=== PATIENT | male | born 1930 | race Caucasian/White ===

== ENCOUNTER 2020-06-07 09:45 | Inpatient (IN) | payer MEDICARE, BC, OTHER ==
[2020-06-07] MEDS ORDERED: Morphine 4 MG/ML VIAL ONE (11:05)
[2020-06-07 11:33] LABS: #Lymphocytes 1.2 thou/uL (1.20-3.40); #Neutrophils 10.1 thou/uL (1.40-6.50); %Basophils 0.1 % (0.0-1.0); %Monocytes 8.3 % (0.0-10.0); %Neutrophils 81.7 % (42.0-75.0); Hemoglobin 15.2 g/dL (14.0-18.0); Mean Corpuscular HGB CONC 32.4 g/dL (32.0-36.0); Mean Corpuscular Hemoglobin 29.9 pg (27.0-31.0); Mean Corpuscular Volume 92.6 fL (78.0-98.0); Mean Platelet Volume 7.2 fL (7.4-10.4); Platelet Count 160 thou/uL (130-400); RBC Distribution Width 11.6 % (11.5-14.5); Red Blood Cell (RBC) Count 5.08 mill/uL (4.70-6.10); White Blood Cell (WBC) Count 12.3 thou/uL (4.8-10.8)
[2020-06-07 11:45] LABS: ALT (SGPT) 14 U/L (8-55); AST (SGOT) 27 U/L (5-34); Albumin 3.9 g/dL (3.4-4.8); Alkaline Phosphatase 84 U/L (40-110); Anion Gap 17 mmol/L (10-20); BUN (Urea Nitrogen) 15 mg/dL (8.4-25.7); Bilirubin, Total 0.8 mg/dL (0.2-1.2); Calc. Creatinine Clearance 0 mL/min (70-130); Calcium 8.9 mg/dL (7.8-10.44); Carbon Dioxide 19 mmol/L (23-31); Chloride 101 mmol/L (98-107); Estimated GFR-MDRD 80; Globulin 4.4 g/dL (2.4-3.5); Glucose 126 mg/dL (83-110); Lipase 13 U/L (8-78); Potassium 5.1 mmol/L (3.5-5.1); Protein, Total 8.3 g/dL (5.8-8.1); Sodium 132 mmol/L (136-145)
[2020-06-07 13:56] VITALS: BMI 24.8
[2020-06-07] MEDS ORDERED: Bisacodyl 10 MG SUPP PR PRN (15:27)
[2020-06-07] MEDS ORDERED: Senokot S 8.6-50 MG TAB PO PRN (15:27)
[2020-06-07] MEDS ORDERED: diphenhydrAMINE 50 MG CAP PO PRN (15:27)
[2020-06-07] MEDS ORDERED: Guaifenesin DM 100-10/5 ML UDCUP PO PRN (15:27)
[2020-06-07] MEDS ORDERED: Ondansetron PF 4 MG/2 ML Vial IVP PRN (15:27)
[2020-06-07] MEDS ORDERED: predniSONE 50 MG TAB PO SCH (16:00)
--- NOTE | 2020-06-07 16:02 | HP ---
REASON FOR ADMISSION: Possible mesenteric ischemia, periumbilical pain. HISTORY OF PRESENTING ILLNESS: The patient gives history of waking up from sleep yesterday night with periumbilical area pain. This was 10/10 in intensity. It is still around 3/10 even after pain medication at present. No complaints of bloody stools. Had a normal bowel movement yesterday morning. He feels like slightly nauseous, but no vomiting as such. No diarrhea. No prior history of similar pain in the past. He sees Dr. Mancuso for Cardiology. He has not had any stenting done for his coronaries in the past. The patient states he has had normal colonoscopy before. No complaints of chest pain, palpitation, PND, or orthopnea. Has chronic cough from a long time. PAST MEDICAL AND SURGICAL HISTORY: History of atrial fibrillation, AICD. 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 Benign prostatic hypertrophy, dyslipidemia, history of nephrolithiasis, bilateral knee replacements, bilateral hip replacements, cataract surgery, and hernia repair. ALLERGIES: TO ASPIRIN, IODINE, NSAIDS, AND PENICILLIN. PERSONAL HISTORY: Does not abuse alcohol or drugs. Quit smoking in 1960s. Lives with his . Ambulates by himself. FAMILY HISTORY: Mother in her 80s from natural causes. Father in his 80s as well and had history of CVA. CODE STATUS: Full. 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 REVIEW OF SYSTEMS: CONSTITUTIONAL: Negative for weight loss or gain, ability to conduct usual activities. SKIN: Negative for rash, itching. EYES: Negative for double vision, pain. ENT/MOUTH: Negative for nose bleeding, neck stiffness, pain, tenderness. CARDIOVASCULAR: Negative for palpitations, dyspnea on exertion, orthopnea. RESPIRATORY: Negative for shortness of breath, wheezing, cough, hemoptysis, fever or night sweats. GASTROINTESTINAL: Negative for poor appetite, abdominal pain, heartburn, nausea, vomiting, constipation, or diarrhea. GENITOURINARY: Negative for urgency, frequency, dysuria, nocturia. MUSCULOSKELETAL: Negative for pain, swelling. NEUROLOGIC/PSYCHIATRIC: Negative for anxiety, depression. ALLERGY/IMMUNOLOGIC: Negative for skin rash, bleeding tendency. PHYSICAL EXAMINATION: GENERAL: The patient is an 89-year-old male, who is currently not in any acute distress. VITAL SIGNS: Blood pressure 106/86, pulse 66 per minute, respiratory rate 20 per minute, temperature 97.7 degrees Fahrenheit, and saturating 100% on room air. NECK: Supple. No elevated JVD. HEENT: Eyes; extraocular muscles intact. Pupils reacting to light. Oral cavity, mucous membranes are moist. No exudates or congestion. CARDIOVASCULAR SYSTEM: S1 and S2 heard. Regular rhythm. RESPIRATORY SYSTEM: Air entry 1+ bilateral. No rales or rhonchi. ABDOMEN: Soft. There is mild tenderness in the periumbilical area. No rigidity or guarding. EXTREMITIES: No peripheral edema or calf tenderness. VASCULAR SYSTEM: Peripheral pulses 1+ bilateral. No ischemic ulcerations or gangrene. CENTRAL NERVOUS SYSTEM: No gross focal motor deficits noted. The patient is alert, awake, and oriented well. PSYCHIATRIC SYSTEM: The patient's mood is euthymic. No hallucinations or delusions. LABORATORY DATA: The patient has had CT of the abdomen and pelvis with and without contrast done at [place]. The official report is pending. Chest x-ray done by my review shows no acute infiltrate. White count of 12, H and H 15 and 47, platelet count 160 with 81% neutrophils. PT/INR within normal limits. PTT 40. Sodium 132, serum bicarb 19, BUN 15, creatinine 0.9, serum glucose 126. Liver enzymes within normal limits. Albumin is 3.9. CLINICAL IMPRESSION AND PLAN: The patient will be under observation on medical floor for suspected mesenteric ischemia with periumbilical pain. His official CAT scan results are pending at present. We will obtain CT angio of the abdomen. The patient has iodine allergy and will need premedication. He will be on prednisone and Benadryl for the same. We will continue all his home medications including Coreg, Proscar, Flomax, Keppra, lisinopril, and Crestor as before. He will be on Protonix 40 mg twice daily. A consult for Dr. Drew Martin has been placed from ER, and we will follow up on his opinion. Echo with 2D Doppler for LV function will be obtained. The patient states his heart is weak and sees Dr. Mancuso. He will be on clear liquid diet for now. We will gently hydrate him at 100 mL per hour normal saline. Job ID: [id number]
[2020-06-07] MEDS: Sodium Chloride 0.9% 1,000 ML IV SCH (16:25)
[2020-06-07] MEDS ORDERED: Fentanyl 100 MCG/2 ML VIAL SLOW IVP PRN (19:35)
[2020-06-07] MEDS: predniSONE 50 MG TAB PO SCH (20:13)
[2020-06-07] MEDS: levETIRAcetam 500 MG TAB PO SCH (20:13)
[2020-06-07] MEDS: Rosuvastatin 20 MG TAB PO SCH (20:13)
[2020-06-07] MEDS: Carvedilol 3.125 MG TAB PO SCH (20:14)
[2020-06-07] MEDS: Tamsulosin HCl 0.4 MG CAP PO SCH (20:14)
[2020-06-08] MEDS: predniSONE 50 MG TAB PO SCH ×2 (02:10→08:25)
[2020-06-08] MEDS: Sodium Chloride 0.9% 1,000 ML IV SCH ×3 (02:10→20:17)
[2020-06-08 05:27] LABS: #Lymphocytes 1.1 thou/uL (1.20-3.40); #Monocytes 0.8 thou/uL (0.11-0.59); #Neutrophils 13.5 thou/uL (1.40-6.50); %Basophils 0.2 % (0.0-1.0); %Eosinophils 0.1 % (0.0-10.0); %Lymphocytes 6.9 % (21.0-51.0); %Monocytes 4.9 % (0.0-10.0); %Neutrophils 87.9 % (42.0-75.0); Hemoglobin 13.8 g/dL (14.0-18.0); Mean Corpuscular Hemoglobin 30.6 pg (27.0-31.0); Mean Corpuscular Volume 92.7 fL (78.0-98.0); Mean Platelet Volume 6.9 fL (7.4-10.4); Platelet Count 186 thou/uL (130-400); RBC Distribution Width 11.6 % (11.5-14.5); Red Blood Cell (RBC) Count 4.52 mill/uL (4.70-6.10); White Blood Cell (WBC) Count 15.4 thou/uL (4.8-10.8)
[2020-06-08 05:48] LABS: Anion Gap 11 mmol/L (10-20); BUN (Urea Nitrogen) 12 mg/dL (8.4-25.7); Calc. Creatinine Clearance 76 mL/min (70-130); Calcium 8.4 mg/dL (7.8-10.44); Carbon Dioxide 20 mmol/L (23-31); Chloride 106 mmol/L (98-107); Estimated GFR-MDRD Greater than 90; Glucose 164 mg/dL (83-110); Potassium 3.9 mmol/L (3.5-5.1); Sodium 133 mmol/L (136-145)
[2020-06-08] MEDS ORDERED: diphenhydrAMINE 25 MG CAP PO SCH (08:00)
[2020-06-08] MEDS: Finasteride 5 MG TAB PO SCH (08:25)
[2020-06-08] MEDS: Carvedilol 3.125 MG TAB PO SCH ×2 (08:25→20:10)
[2020-06-08] MEDS: levETIRAcetam 500 MG TAB PO SCH ×2 (08:25→20:10)
[2020-06-08] MEDS: Lisinopril 10 MG TAB PO SCH (08:26)
--- NOTE | 2020-06-08 09:28 | CT ---
EXAM: CTA Angio Abd Pelvis W WO Con PROVIDED CLINICAL HISTORY: Mesenteric ischemia COMPARISON: 06/07/2020 CT abdomen and pelvis FINDINGS: The visualized lung bases are free of significant opacity. The solid abdominal organs are suboptimally evaluated in the arterial phase of contrast. Simple appea ring right renal cyst and parapelvic left renal cysts are seen. Gallstones are noted. Scattered loops of ectatic fluid-filled small bowel without evidence for padmini obstruction. No free f luid or free air apparent. There is the development of fat stranding about the neck of the gallbladder, with gallstones again se en. The abdominal aorta is nonaneurysmal. 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 No significant superior mesenteric or inferior mesenteric artery stenosis. Moderate proximal left renal artery calcified stenosis and mild right proximal renal artery calcified stenosis. Evaluation of the pelvis is limited due to beam hardening artifact from bilateral hip arthroplasties. Changes of iliopsoas bursitis with intramuscular extension on the left are redemonstrated. The osseous structures demonstrate no concerning lytic or blastic lesions. IMPRESSION: 1. Cholelithiasis with development of fat stranding about the neck of the gallbladder. Correlate with concerns for acute cholecystitis. 2. Scattered loops of ectatic fluid-filled small bowel without evidence for obstruction. This could r eflect enteritis or ileus.
[2020-06-08] MEDS ORDERED: Iopamidol-370 76% 500 ML 1 ML ONE (11:29)
--- NOTE | 2020-06-08 12:28 | PDOC.HOSPP ---
- Subjective Encounter Date: 06/08/20 Encounter Time: 11:00 Subjective: no abd pain this am, feels good no nausea or vomiting - Objective Vital Signs & Weight: Vital Signs (12 hours) Temp Pulse Resp BP Pulse Ox 06/08/20 07:40 97.8 F 75 20 126/76 95 06/08/20 04:50 97.9 F 78 18 107/68 93 L Weight Weight 178 lb I&O: 06/07/20 06/08/20 06/09/20 06:59 06:59 06:59 Intake Total 2000 Output Total 700 Balance 1300 Result Diagrams: 06/08/20 05:00 06/08/20 05:00 Hospitalist ROS - Medication Medications: Active Medications Generic Name Dose Route Start Last Admin Trade Name Freq PRN Reason Stop Dose Admin Carvedilol 3.125 mg 06/07/20 21:00 06/08/20 08:25 Carvedilol 3.125 Mg Tab PO 3.125 mg BID MICHAEL Administration Finasteride 5 mg 06/08/20 09:00 06/08/20 08:25 Finasteride 5 Mg Tab PO 5 mg DAILY MICHAEL Administration Sodium Chloride 1,000 mls @ 100 mls/hr 06/07/20 15:30 06/08/20 11:23 Normal Saline 0.9% IV 1,000 mls .Q10H MICHAEL Administration Levetiracetam 250 mg 06/07/20 21:00 06/08/20 08:25 Levetiracetam 500 Mg Tab PO 250 mg BID MICHAEL Administration Lisinopril 5 mg 06/08/20 09:00 06/08/20 08:26 Lisinopril 10 Mg Tab PO 5 mg DAILY MICHAEL Administration Pantoprazole Sodium 40 mg 06/07/20 21:00 06/08/20 08:26 Pantoprazole 40 Mg Tab PO 40 mg BID MICHAEL Administration Rosuvastatin Calcium 20 mg 06/07/20 21:00 06/07/20 20:13 Rosuvastatin 20 Mg Tab PO 20 mg HS MICHAEL Administration Tamsulosin HCl 0.4 mg 06/07/20 21:00 06/07/20 20:14 Tamsulosin Hcl 0.4 Mg Cap PO 0.4 mg QPM MICHAEL Administration - Exam General Appearance: awake alert Eye: PERRL, anicteric sclera ENT: no oropharyngeal lesions, moist mucosa Neck: supple, no JVD Heart: RRR, no murmur Respiratory: no wheezes, no rales Gastrointestinal: soft, non-tender, non-distended, normal bowel sounds Extremities: no cyanosis, no edema Neurological: cranial nerve grossly intact, no focal deficits Hosp A/P (1) Abdominal pain Code(s): R10.9 - UNSPECIFIED ABDOMINAL PAIN Status: Acute Qualifiers: Abdominal location: periumbilical Qualified Code(s): R10.33 - Periumbilical pain (2) Cholelithiasis Code(s): K80.20 - CALCULUS OF GALLBLADDER W/O CHOLECYSTITIS W/O OBSTRUCTION Status: Suspected Qualifiers: Cholelithiasis location: gallbladder Cholecystitis presence: with cholecystitis (3) Afib Code(s): I48.91 - UNSPECIFIED ATRIAL FIBRILLATION Status: Chronic Qualifiers: Atrial fibrillation type: paroxysmal Qualified Code(s): I48.0 - Paroxysmal atrial fibrillation (4) BPH (benign prostatic hyperplasia) Code(s): N40.0 - BENIGN PROSTATIC HYPERPLASIA WITHOUT LOWER URINRY TRACT SYMP Status: Chronic Qualifiers: Lower urinary tract symptom presence: symptoms absent Qualified Code(s): N40.0 - Benign prostatic hyperplasia without lower urinary tract symptoms (5) CAD (coronary artery disease) Code(s): I25.10 - ATHSCL HEART DISEASE OF [place] CORONARY ARTERY W/O ANG PCTRS Status: Chronic Qualifiers: Coronary Disease-Associated Artery/Lesion type: [place] artery [place] vs. tr ansplanted heart: [place] heart Associated angina: without angina Qualified Code(s): I25.10 - Atherosclerotic heart disease of [place] coronary artery without angina pectoris (6) Dyslipidemia Code(s): E78.5 - HYPERLIPIDEMIA, UNSPECIFIED Status: Chronic (7) HTN (hypertension) Code(s): I10 - ESSENTIAL (PRIMARY) HYPERTENSION Status: Chronic Qualifiers: - Plan CT angio abd results noted, no high grade stenosis of intra-abd arteries has edema around gal bladder neck, will get usg, surg consult hemostable off eliquis from yesterday (not sure if he took his morning dose yesterday) prior cath in 2016 showed 60% lad with no intervention, last echo showed normal ef per If no procedures are planned he will be dc'd home today, if not will switch him to inpatient status
--- NOTE | 2020-06-08 14:41 | ULT ---
EXAM: US Gallbladder RUQ CLINICAL HISTORY: Eval for cholecystitis.. COMPARISON: 04/20/2024 FINDINGS: Pancreas: Obscured by bowel gas Liver:Suboptimal evaluation left hepatic lobe. In the right hepatic lobe is a 1.2 x 1.1 x 1.3 cm hypo echoic focus with through transmission suggesting a slightly complex cyst. Right hepatic lobe: 14.8 cm Gallbladder: Gallbladder wall is thickened measuring 0.32 cm. There is pericholecystic fluid. Extensi ve gallstones with shadowing. Kearns's sign:Negative Portal Vein: Patent. Appropriate directional flow Bile ducts: Suboptimal evaluation the common bile duct Right kidney: There is right renal cortical thinning. No obvious cortical masses. No hydronephrosis. Right kidney measures 5.0 x 11.7 x 4.7 cm. There is a 2.6 x 3.0 x 2.7 cm right renal cortical cyst. cm in length. IMPRESSION: 1. Sonographic evidence of cholelithiasis with findings are equivocal for cholecystitis. HIDA scan is recommended.
[2020-06-08] MEDS: Tamsulosin HCl 0.4 MG CAP PO SCH (20:10)
[2020-06-08] MEDS: Rosuvastatin 20 MG TAB PO SCH (20:10)
--- NOTE | 2020-06-08 20:51 | CON ---
DATE OF CONSULTATION: 06/08/2020 CHIEF COMPLAINT: Abdominal pain. HISTORY OF PRESENT ILLNESS: This is an 89-year-old male who was transferred over from [place] with a history of pain in the periumbilical region radiating up towards his right side. Pain was sharp, severe, occurred after a meal. The pain has now resolved. It was not associated with nausea or vomiting. No sick contacts. No diarrhea or constipation. He has never had this pain before. He had known gallstones in the past from previous CAT scans. His CT did not show mesenteric ischemia. It did however show gallstones and questionable inflammatory change around the gallbladder. He has now had an ultrasound, which showed some pericholecystic fluid concerning for cholecystitis. His pain has completely resolved and he is hungry. No nausea. PAST MEDICAL HISTORY: Atrial fibrillation, CVA, BPH, dyslipidemia, nephrolithiasis. PAST SURGICAL HISTORY: Knee replacement, hip replacement, cataract, hernia repair, AICD. ALLERGIES: ASPIRIN, IODINE, NSAIDS, PENICILLIN. SOCIAL HISTORY: No smoking or alcohol or other drugs. REVIEW OF SYSTEMS: 10-system review of systems is otherwise negative unless described above. PHYSICAL EXAMINATION: VITAL SIGNS: He is afebrile. Vital signs are stable. CHEST: Clear. HEART: Regular rate. ABDOMEN: Soft, minimally tender in the right upper quadrant without guarding or rebound. No abdominal hernias. EXTREMITIES: No ischemia or edema to extremities. DIAGNOSTIC STUDIES: CT scan and ultrasound as above. LABORATORY DATA: White blood cell count is 15, hemoglobin 13. Liver function tests normal on admission. Creatinine normal 0.77. ASSESSMENT AND PLAN: Symptomatic cholelithiasis, questionable cholecystitis, but symptoms have now resolved. The patient would rather be discharged home. I recommend COVID test prior to discharge. I recommended he try a low-fat diet tonight before he is discharged because his symptoms may return. He has been n.p.o. all day. Even if he goes home, he can call my office early in the week if the symptoms recur. Otherwise, would not be able to do his gallbladder until Thursday secondary to lack of COVID testing thus far. Job ID: [id number]
[2020-06-09] MEDS: Sodium Chloride 0.9% 1,000 ML IV SCH ×2 (00:12→11:48)
--- NOTE | 2020-06-09 08:07 | PRG ---
DATE OF SERVICE: 06/09/2020 SUBJECTIVE: Mr. Grigsby had a good night. He tolerated solid food. He denies nausea. OBJECTIVE: VITAL SIGNS: On exam, he is afebrile. Vital signs are stable. ABDOMEN: He is tender in the right upper quadrant. ASSESSMENT: Symptomatic cholelithiasis with ongoing pain, although he did tolerate diet. PLAN: I think the safest thing is to remove his gallbladder tomorrow. He is more amenable to consenting to that today. Plan would be diet as tolerated today, n.p.o. after midnight tonight, laparoscopic cholecystectomy tomorrow. Job ID: [id number]
[2020-06-09 08:21] LABS: #Lymphocytes 1.5 thou/uL (1.20-3.40); #Monocytes 1.4 thou/uL (0.11-0.59); #Neutrophils 12.9 thou/uL (1.40-6.50); %Basophils 0.3 % (0.0-1.0); %Eosinophils 0.1 % (0.0-10.0); %Lymphocytes 9.5 % (21.0-51.0); %Monocytes 8.6 % (0.0-10.0); %Neutrophils 81.6 % (42.0-75.0); Mean Corpuscular HGB CONC 33.1 g/dL (32.0-36.0); Mean Corpuscular Hemoglobin 30.5 pg (27.0-31.0); Mean Platelet Volume 6.9 fL (7.4-10.4); Platelet Count 183 thou/uL (130-400); RBC Distribution Width 11.7 % (11.5-14.5); Red Blood Cell (RBC) Count 4.26 mill/uL (4.70-6.10); White Blood Cell (WBC) Count 15.8 thou/uL (4.8-10.8)
[2020-06-09] MEDS: levETIRAcetam 500 MG TAB PO SCH ×2 (08:46→20:03)
[2020-06-09] MEDS: Finasteride 5 MG TAB PO SCH (08:47)
[2020-06-09] MEDS: Carvedilol 3.125 MG TAB PO SCH ×2 (08:47→20:03)
[2020-06-09] MEDS: Lisinopril 10 MG TAB PO SCH (08:47)
[2020-06-09 08:50] LABS: Anion Gap 9 mmol/L (10-20); BUN (Urea Nitrogen) 16 mg/dL (8.4-25.7); Calc. Creatinine Clearance 73 mL/min (70-130); Carbon Dioxide 23 mmol/L (23-31); Chloride 110 mmol/L (98-107); Estimated GFR-MDRD Greater than 90; Glucose 105 mg/dL (83-110); Potassium 4.2 mmol/L (3.5-5.1); Sodium 138 mmol/L (136-145)
[2020-06-09 14:57] LABS: SARS-CoV-2 MS2 Positive; SARS-CoV-2 N Gene Negative; SARS-CoV-2 S Gene Negative; SARS-CoV-2 by NAA Not Detected (NotDetected); SARS-CoV-2 orf1ab Negative
--- NOTE | 2020-06-09 15:12 | PDOC.HOSPP ---
- Subjective Encounter Date: 06/09/20 Encounter Time: 15:10 Subjective: Mr. Grigsby was seen today in follow-up of acute cholecystitis. He does not have any complaints today. He denies chest pain or shortness of breath. He denies symptoms of decompensated heart failure such as dyspnea at rest or on exertion. He denies PND or orthopnea. He says he can walk a flight of stairs with a cane. - Objective Vital Signs & Weight: Vital Signs (12 hours) Temp Pulse Resp BP Pulse Ox 06/09/20 11:21 97.7 F 83 18 113/72 93 L 06/09/20 06:56 97.8 F 80 18 120/73 95 06/09/20 04:00 97.9 F 79 18 126/70 92 L Weight Weight 178 lb I&O: 06/08/20 06/09/20 06/10/20 06:59 06:59 06:59 Intake Total 2000 2900 Output Total 700 400 Balance 1300 2500 Result Diagrams: 06/09/20 08:11 06/09/20 08:11 Hospitalist ROS - Medication Medications: Active Medications Generic Name Dose Route Start Last Admin Trade Name Freq PRN Reason Stop Dose Admin Carvedilol 3.125 mg 06/07/20 21:00 06/09/20 08:47 Carvedilol 3.125 Mg Tab PO 3.125 mg BID MICHAEL Administration Finasteride 5 mg 06/08/20 09:00 06/09/20 08:47 Finasteride 5 Mg Tab PO 5 mg DAILY MICHAEL Administration Sodium Chloride 1,000 mls @ 100 mls/hr 06/07/20 15:30 06/09/20 11:48 Normal Saline 0.9% IV 1,000 mls .Q10H MICHAEL Administration Levetiracetam 250 mg 06/07/20 21:00 06/09/20 08:46 Levetiracetam 500 Mg Tab PO 250 mg BID MICHAEL Administration Lisinopril 5 mg 06/08/20 09:00 06/09/20 08:47 Lisinopril 10 Mg Tab PO 5 mg DAILY MICHAEL Administration Pantoprazole Sodium 40 mg 06/07/20 21:00 06/09/20 08:47 Pantoprazole 40 Mg Tab PO 40 mg BID MICHAEL Administration Rosuvastatin Calcium 20 mg 06/07/20 21:00 06/08/20 20:10 Rosuvastatin 20 Mg Tab PO 20 mg HS MICHAEL Administration Senna/Docusate Sodium 2 tab 06/07/20 15:27 06/08/20 20:10 Senokot S 8.6-50 Mg Tab PO 2 tab BID PRN Administration Constipation Tamsulosin HCl 0.4 mg 06/07/20 21:00 06/08/20 20:10 Tamsulosin Hcl 0.4 Mg Cap PO 0.4 mg QPM MICHAEL Administration - Exam Eye: PERRL, anicteric sclera Heart: RRR, no murmur, no gallops, no rubs, normal peripheral pulses Respiratory: CTAB, no wheezes, no rales, no ronchi, normal chest expansion Gastrointestinal: soft, tender to palpation (+ RUQ tenderness, no rebound or guarding) Extremities: no cyanosis, no edema Hosp A/P (1) Acute cholecystitis Code(s): K81.0 - ACUTE CHOLECYSTITIS Status: Acute (2) CAD (coronary artery disease) Code(s): I25.10 - ATHSCL HEART DISEASE OF [place] CORONARY ARTERY W/O ANG PCTRS Status: Chronic Qualifiers: Coronary Disease-Associated Artery/Lesion type: [place] artery [place] vs. transplanted heart: [place] heart Associated angina: without angina Qualified Code(s): I25.10 - Atherosclerotic heart disease of [place] coronary artery without angina pectoris (3) Dyslipidemia Code(s): E78.5 - HYPERLIPIDEMIA, UNSPECIFIED Status: Chronic (4) HTN (hypertension) Code(s): I10 - ESSENTIAL (PRIMARY) HYPERTENSION Status: Chronic Qualifiers: - Plan * Acute Cholecystitis- plan is for lap giuseppe tomorrow * HTN- blood pressure is stable * CAD- stable- Echo from 06/03 reviewed. EKG is a paced rhythm. His Candy Maker Helper is Dr. Mancuso * HTN- blood pressure is stable
[2020-06-09] MEDS: Rosuvastatin 20 MG TAB PO SCH (20:03)
[2020-06-09] MEDS: Tamsulosin HCl 0.4 MG CAP PO SCH (20:03)
[2020-06-10] MEDS: Sodium Chloride 0.9% 1,000 ML IV SCH ×3 (01:44→16:12)
[2020-06-10] MEDS: Finasteride 5 MG TAB PO SCH (09:00)
[2020-06-10] MEDS ORDERED: Lidocaine 1% PF 5 ML VIAL ONE (09:22)
[2020-06-10] MEDS ORDERED: Rocuronium Bromide 10 MG/ML (10ML VIAL) ONE (09:22)
[2020-06-10] MEDS ORDERED: PROPOFOL 200 MG/20 ML VIAL ONE (09:22)
[2020-06-10] MEDS: Carvedilol 3.125 MG TAB PO SCH ×2 (09:45→19:59)
[2020-06-10] MEDS: Lisinopril 10 MG TAB PO SCH (09:46)
[2020-06-10] MEDS: levETIRAcetam 500 MG TAB PO SCH ×2 (09:47→19:59)
[2020-06-10] MEDS ORDERED: cefOXitin Sodium/Dextrose 2 GM/50 ML BAG ONE (11:13)
[2020-06-10] MEDS ORDERED: Bupivacaine/Epinephrine 0.25% 30 ML VIAL ONE (11:23)
[2020-06-10] MEDS ORDERED: Fentanyl 100 MCG/2 ML VIAL ONE ×2 (11:26→13:17)
[2020-06-10] MEDS ORDERED: traMADol HCl 50 MG TAB PO PRN (12:42)
[2020-06-10] MEDS ORDERED: Morphine 2 MG/ML VIAL SLOW IVP PRN (12:42)
[2020-06-10] MEDS ORDERED: Morphine 4 MG/ML VIAL SLOW IVP PRN (12:42)
[2020-06-10] MEDS ORDERED: Ondansetron HCl/PF 4 MG/2 ML Vial IVP PRN (12:57)
[2020-06-10] MEDS ORDERED: Promethazine HCl 25 MG/ML VIAL SLOW IVP PRN (12:57)
[2020-06-10] MEDS ORDERED: Promethazine HCl 25 MG/ML VIAL IM PRN (12:57)
--- NOTE | 2020-06-10 17:42 | OP ---
DATE OF PROCEDURE: 06/10/2020 PREOPERATIVE DIAGNOSIS: Acute cholecystitis. POSTOPERATIVE DIAGNOSIS: Acute gangrenous cholecystitis. PROCEDURE PERFORMED: Laparoscopic cholecystectomy with placement of intraabdominal drain. ANESTHESIA: General. ESTIMATED BLOOD LOSS: 50 mL. COMPLICATIONS: None. FINDINGS: Acute gangrenous cholecystitis. DESCRIPTION OF PROCEDURE: The patient was taken to the operating room and laid supine on the operating room table. After general anesthetic was obtained, the abdomen was shaved, prepped, and draped in a sterile fashion. A straight incision was made above the umbilicus. Cautery was used to dissect down to and score the fascia. The abdominal cavity was entered bluntly using a Maylin clamp. Holding stitch of PDS was placed on each side of the fascia. Duke trocar was placed. High-flow pneumoperitoneum was obtained. An upper midline 5-mm port and 2 right upper quadrant 5-mm ports were placed under direct visualization. The gallbladder had to be decompressed. It was grabbed and pushed up over the liver. The peritoneum was opened anteriorly and posteriorly. There was significant inflammatory change around the base of the gallbladder. The cystic duct and cystic artery were dissected free from surrounding structures. The cystic artery was taken using 2 clips proximally and cauterized distally. The critical view of triangle was seen, showing only the cystic duct and cystic artery branching medial to lateral and no other branching structures. Cystic duct appeared very thin-walled and partially gangrenous. Three clips were placed proximally on it and was cut distally. For this reason, a postop drain would be placed. The gallbladder was dissected out of the gallbladder fossa using cautery, placed in EndoCatch bag and brought out through the Duke. Meticulous hemostasis was obtained in the liver bed. A 19 round drain brought out through a right upper quadrant incision and left in the liver bed, sutured to the skin using 2-0 silk suture. All port sites were infiltrated using local anesthetic. All ports were removed under camera visualization. Pneumoperitoneum was let down. PDS was used to close the fascial defect below the umbilicus. All incisions were irrigated and closed using 4-0 Monocryl and Dermabond. The patient was sent to Recovery in stable condition. All instrument counts, needle counts, and lap counts were correct. Job ID: [id number]
[2020-06-10] MEDS: metroNIDAZOLE 500 MG in Premix Bag 1 BAG IVPB SCH ×2 (17:55→23:17)
[2020-06-10] MEDS: Tamsulosin HCl 0.4 MG CAP PO SCH (19:59)
[2020-06-10] MEDS: Rosuvastatin 20 MG TAB PO SCH (19:59)
[2020-06-11] MEDS: metroNIDAZOLE 500 MG in Premix Bag 1 BAG IVPB SCH (05:05)
[2020-06-11] MEDS: Sodium Chloride 0.9% 1,000 ML IV SCH (05:06)
[2020-06-11 08:20] LABS: #Lymphocytes 1.5 thou/uL (1.20-3.40); #Monocytes 1.4 thou/uL (0.11-0.59); #Neutrophils 8.1 thou/uL (1.40-6.50); %Basophils 0.1 % (0.0-1.0); %Eosinophils 0.2 % (0.0-10.0); %Lymphocytes 13.8 % (21.0-51.0); %Monocytes 12.3 % (0.0-10.0); %Neutrophils 73.5 % (42.0-75.0); Hemoglobin 12.4 g/dL (14.0-18.0); Mean Corpuscular HGB CONC 32.3 g/dL (32.0-36.0); Mean Corpuscular Hemoglobin 30.2 pg (27.0-31.0); Mean Corpuscular Volume 93.5 fL (78.0-98.0); Mean Platelet Volume 6.6 fL (7.4-10.4); Platelet Count 183 thou/uL (130-400); RBC Distribution Width 11.6 % (11.5-14.5); Red Blood Cell (RBC) Count 4.11 mill/uL (4.70-6.10)
[2020-06-11 08:31] LABS: Anion Gap 12 mmol/L (10-20); BUN (Urea Nitrogen) 7 mg/dL (8.4-25.7); Calc. Creatinine Clearance 82 mL/min (70-130); Calcium 7.8 mg/dL (7.8-10.44); Carbon Dioxide 19 mmol/L (23-31); Chloride 107 mmol/L (98-107); Estimated GFR-MDRD Greater than 90; Glucose 109 mg/dL (83-110); Potassium 3.4 mmol/L (3.5-5.1); Sodium 135 mmol/L (136-145)
[2020-06-11] MEDS: levETIRAcetam 500 MG TAB PO SCH (09:07)
[2020-06-11] MEDS: Lisinopril 10 MG TAB PO SCH (09:08)
[2020-06-11] MEDS: Carvedilol 3.125 MG TAB PO SCH (09:08)
[2020-06-11] MEDS: Finasteride 5 MG TAB PO SCH (09:09)
--- NOTE | 2020-06-11 10:06 | PDOC.GSPN ---
Surgery Progress Note: Subj - Subjective Narrative: Doing well. Pain controlled Surgery Progress Note: Obj - Vital signs Vital signs: Vital Signs - Most Recent Temp Pulse Resp BP Pulse Ox 98.0 F 80 14 165/89 H 95 06/11/20 07:31 06/11/20 07:31 06/11/20 07:31 06/11/20 07:31 06/11/20 07:31 - Physical Exam General: no distress Abdomen: soft, appropriately tender Wound: healing well Surgery Progress Note: Results - Labs Result Diagrams: 06/11/20 07:56 06/11/20 07:56 Lab results: Laboratory Results - last 24 hr 06/11/20 06/11/20 07:56 07:56 WBC 11.0 H RBC 4.11 L Hgb 12.4 L Hct 38.4 L MCV 93.5 MCH 30.2 MCHC 32.3 RDW 11.6 Plt Count 183 MPV 6.6 L Neutrophils % 73.5 Lymphocytes % 13.8 L Monocytes % 12.3 H Eosinophils % 0.2 Basophils % 0.1 Neutrophils # 8.1 H Lymphocytes # 1.5 Monocytes # 1.4 H Eosinophils # 0.0 Basophils # 0.0 Sodium 135 L Potassium 3.4 L Chloride 107 Carbon Dioxide 19 L Anion Gap 12 BUN 7 L Creatinine 0.71 Estimated GFR (MDRD) Greater than 90 Glucose 109 Calcium 7.8 Surgery Progress Note: A/P - Problem (1) Cholecystitis Current Visit: Yes Code(s): K81.9 - CHOLECYSTITIS, UNSPECIFIED Status: Acute - Plan Plan: Will go home with drain REturn thursday for drain removal
--- NOTE | 2020-06-11 11:35 | PDOC.HOSPP ---
- Subjective Encounter Date: 06/11/20 Encounter Time: 11:34 Subjective: Mr. Grigsby was seen today in follow-up of cholecystitis. He says he feels fine, and wants to go home. He tolerated a solid diet. - Objective Vital Signs & Weight: Vital Signs (12 hours) Temp Pulse Resp BP BP Pulse Ox 06/11/20 07:31 98.0 F 80 14 165/89 H 95 06/11/20 04:00 98.4 F 84 18 116/63 94 L 06/10/20 23:59 97.8 F 83 18 156/83 H 93 L Weight Weight 178 lb I&O: 06/10/20 06/11/20 06/12/20 06:59 06:59 06:59 Intake Total 1200 Output Total 400 100 290 Balance 800 -100 -290 Result Diagrams: 06/11/20 07:56 06/11/20 07:56 Hospitalist ROS - Medication Medications: Active Medications Generic Name Dose Route Start Last Admin Trade Name Freq PRN Reason Stop Dose Admin Carvedilol 3.125 mg 06/07/20 21:00 06/11/20 09:08 Carvedilol 3.125 Mg Tab PO 3.125 mg BID MICHAEL Administration Finasteride 5 mg 06/08/20 09:00 06/11/20 09:09 Finasteride 5 Mg Tab PO 5 mg DAILY MICHAEL Administration Sodium Chloride 1,000 mls @ 100 mls/hr 06/07/20 15:30 06/11/20 05:06 Normal Saline 0.9% IV 1,000 mls .Q10H MICHAEL Administration Levofloxacin 500 mg/ Device 100 mls @ 100 mls/hr 06/10/20 13:00 06/10/20 16:1 3 IVPB 100 mls 1300 MICHAEL Administration Metronidazole 500 mg/ Device 100 mls @ 100 mls/hr 06/10/20 14:00 06/11/20 05:05 IVPB 100 mls Q8HR MICHAEL Administration Levetiracetam 250 mg 06/07/20 21:00 06/11/20 09:07 Levetiracetam 500 Mg Tab PO 250 mg BID MICHAEL Administration Lisinopril 5 mg 06/08/20 09:00 06/11/20 09:08 Lisinopril 10 Mg Tab PO 5 mg DAILY MICHAEL Administration Morphine Sulfate 2 mg 06/10/20 12:42 06/10/20 16:10 Morphine 2 Mg/Ml Vial SLOW IVP 2 mg Q2H PRN Administration Moderate Pain (4-6) Pantoprazole Sodium 40 mg 06/07/20 21:00 06/11/20 09:08 Pantoprazole 40 Mg Tab PO 40 mg BID MICHAEL Administration Rosuvastatin Calcium 20 mg 06/07/20 21:00 06/10/20 19:59 Rosuvastatin 20 Mg Tab PO 20 mg HS MICHAEL Administration Senna/Docusate Sodium 2 tab 06/07/20 15:27 06/08/20 20:10 Senokot S 8.6-50 Mg Tab PO 2 tab BID PRN Administration Constipation Tamsulosin HCl 0.4 mg 06/07/20 21:00 06/10/20 19:59 Tamsulosin Hcl 0.4 Mg Cap PO 0.4 mg QPM MICHAEL Administration - Exam Eye: PERRL, anicteric sclera Heart: RRR, no murmur, no gallops, no rubs, normal peripheral pulses Respiratory: CTAB, no wheezes, no rales, no ronchi, normal chest expansion, no tachypnea, normal percussion Gastrointestinal: soft, non-tender, non-distended, normal bowel sounds, no palpable masses Extremities: no cyanosis Hosp A/P (1) Acute cholecystitis Code(s): K81.0 - ACUTE CHOLECYSTITIS Status: Acute (2) CAD (coronary artery disease) Code(s): I25.10 - ATHSCL HEART DISEASE OF [place] CORONARY ARTERY W/O ANG PCTRS Status: Chronic Qualifiers: Coronary Disease-Associated Artery/Lesion type: [place] artery [place] vs. transplanted heart: [place] heart Associated angina: without angina Qualified Code(s): I25.10 - Atherosclerotic heart disease of [place] coronary artery without angina pectoris (3) Dyslipidemia Code(s): E78.5 - HYPERLIPIDEMIA, UNSPECIFIED Status: Chronic (4) HTN (hypertension) Code(s): I10 - ESSENTIAL (PRIMARY) HYPERTENSION Status: Chronic Qualifiers: - Plan * Acute Cholecystitis- he is s/p lap chiquita. * No complaints. * He has been cleared for discharge home by surgery
--- NOTE | 2020-06-11 11:38 | PDOC.HOSPP ---
- Subjective Encounter Date: 06/10/20 Encounter Time: 13:00 Subjective: Mr. Grigsby was seen today in follow-up of cholecystitis. He notes some abdominal discomfort. - Objective Vital Signs & Weight: Vital Signs (12 hours) Temp Pulse Resp BP BP Pulse Ox 06/11/20 07:31 98.0 F 80 14 165/89 H 95 06/11/20 04:00 98.4 F 84 18 116/63 94 L 06/10/20 23:59 97.8 F 83 18 156/83 H 93 L Weight Weight 178 lb I&O: 06/10/20 06/11/20 06/12/20 06:59 06:59 06:59 Intake Total 1200 Output Total 400 100 290 Balance 800 -100 -290 Result Diagrams: 06/11/20 07:56 06/11/20 07:56 Hospitalist ROS - Medication Medications: Active Medications Generic Name Dose Route Start Last Admin Trade Name Freq PRN Reason Stop Dose Admin Carvedilol 3.125 mg 06/07/20 21:00 06/11/20 09:08 Carvedilol 3.125 Mg Tab PO 3.125 mg BID MICHAEL Administration Finasteride 5 mg 06/08/20 09:00 06/11/20 09:09 Finasteride 5 Mg Tab PO 5 mg DAILY MICHAEL Administration Sodium Chloride 1,000 mls @ 100 mls/hr 06/07/20 15:30 06/11/20 05:06 Normal Saline 0.9% IV 1,000 mls .Q10H MICHAEL Administration Levofloxacin 500 mg/ Device 100 mls @ 100 mls/hr 06/10/20 13:00 06/10/20 16:13 IVPB 100 mls 1300 MICHAEL Administration Metronidazole 500 mg/ Device 100 mls @ 100 mls/hr 06/10/20 14:00 06/11/20 05:05 IVPB 100 mls Q8HR MICHAEL Administration Levetiracetam 250 mg 06/07/20 21:00 06/11/20 09:07 Levetiracetam 500 Mg Tab PO 250 mg BID MICHAEL Administration Lisinopril 5 mg 06/08/20 09:00 06/11/20 09:08 Lisinopril 10 Mg Tab PO 5 mg DAILY MICHAEL Administration Morphine Sulfate 2 mg 06/10/20 12:42 09/27/20 16:10 Morphine 2 Mg/Ml Vial SLOW IVP 2 mg Q2H PRN Administration Moderate Pain (4-6) Pantoprazole Sodium 40 mg 06/07/20 21:00 06/11/20 09:08 Pantoprazole 40 Mg Tab PO 40 mg BID MICHAEL Administration Rosuvastatin Calcium 20 mg 06/07/20 21:00 06/10/20 19:59 Rosuvastatin 20 Mg Tab PO 20 mg HS MICHAEL Administration Senna/Docusate Sodium 2 tab 06/07/20 15:27 06/08/20 20:10 Senokot S 8.6-50 Mg Tab PO 2 tab BID PRN Administration Constipation Tamsulosin HCl 0.4 mg 06/07/20 21:00 06/10/20 19:59 Tamsulosin Hcl 0.4 Mg Cap PO 0.4 mg QPM MICHAEL Administration - Exam Eye: PERRL, anicteric sclera Heart: RRR, no murmur, no gallops, no rubs, normal peripheral pulses Respiratory: CTAB, no wheezes, no rales, no ronchi, normal chest expansion Gastrointestinal: soft (+ mildly distended,), normal bowel sounds Extremities: no cyanosis, no edema Hosp A/P (1) Acute cholecystitis Code(s): K81.0 - ACUTE CHOLECYSTITIS Status: Acute (2) CAD (coronary artery disease) Code(s): I25.10 - ATHSCL HEART DISEASE OF [place] CORONARY ARTERY W/O ANG PCTRS Status: Chronic Qualifiers: Coronary Disease-Associated Artery/Lesion type: [place] artery [place] vs. transplanted heart: [place] heart Associated angina: without angina Qualified Code(s): I25.10 - Atherosclerotic heart disease of [place] coronary artery without angina pectoris (3) Dyslipidemia Code(s): E78.5 - HYPERLIPIDEMIA, UNSPECIFIED Status: Chronic (4) HTN (hypertension) Code(s): I10 - ESSENTIAL (PRIMARY) HYPERTENSION Status: Chronic Qualifiers: - Plan * Acute Cholecystitis- he is s/p lap chiquita. * Advance diet as per Surgery * CAD- stable * HTN- blood pressure is a bit elevated- will re-start his home medications * He has been cleared for discharge home by surgery
[2020-06-11 14:59] VITALS: BP 151/82; TEMP 98.1
--- NOTE | 2020-06-12 01:10 | DIS ---
DATE OF ADMISSION: 06/08/2020 DATE OF DISCHARGE: 06/11/2020 PRIMARY CARE PHYSICIAN: Dr. Cedric Currie. DISCHARGE DIAGNOSES: 1. Acute gangrenous cholecystitis. 2. History of atrial fibrillation. 3. History of cerebrovascular disease with left-sided weakness. 4. BPH. 5. Dyslipidemia. 6. Osteoarthritis. DISCHARGE MEDICATIONS: Include: 1. Levaquin 500 mg p.o. daily for five days. 2. Flagyl 500 mg p.o. t.i.d. for 5 days. 3. Florastor 250 mg p.o. daily. 4. Keppra 250 mg p.o. b.i.d. 5. Eliquis 5 mg p.o. b.i.d. 6. Lisinopril 5 mg p.o. daily. 7. Lasix 20 mg p.o. daily. 8. Flomax 0.4 mg p.o. q.p.m. 9. Finasteride 5 mg p.o. daily. 10. Crestor 20 mg p.o. at bedtime. 11. Coreg 3.125 mg b.i.d. IMAGING DONE DURING THE HOSPITAL STAY: The patient had a CT angiogram of the abdomen and pelvis showing some evidence of cholelithiasis with development of some fat stranding in the neck of the gallbladder. Also, there was some scattered ectatic fluid-filled small bowel without evidence of obstruction. The patient also had an abdominal ultrasound showing evidence of cholelithiasis with findings equivocal for cholecystitis. The patient also had an echocardiogram, this demonstrated an ejection fraction of 55% to 60%. There was some E to A flow reversal suggestive of diastolic dysfunction. There was evidence of pacemaker AICD leads in the right atrial cavity. The patient had a laparoscopic cholecystectomy with placement of an intraabdominal drain. CODE STATUS: Full code. ALLERGIES: TO ASPIRIN, NSAIDS, PENICILLINS, AND IODINE. HOSPITAL COURSE: Mr. Grigsby is a pleasant 89-year-old gentleman, who presented to the emergency room with complaints of abdominal pain. The pain was periumbilical in location. Given his history of atrial fibrillation, the initial concern was for possible mesenteric ischemia. He underwent a CT angiogram of the abdomen and pelvis. This was negative for any obvious evidence of bowel ischemia. However, it did demonstrate evidence for acute cholecystitis. General Surgery was consulted. The patient underwent laparoscopic cholecystectomy. He had an uneventful postoperative course. The gallbladder was found to be gangrenous and for this reason, an intraabdominal drain was placed during surgery. He will be going home with an intraabdominal drain. The plan is for him to follow up with Dr. Forbes on Thursday to have the drain removed. He will be discharged home on oral antibiotics in the interim, as well as probiotic. He is also to contact his primary care physician to follow up within a couple of weeks as well. Job ID: [id number]
== END 2020-06-11 14:56 | disposition home or self-care (01) | DRG 419 ==
LOC: ERS 09:45 → ERHOLD 10:53 → INTOOBSV 10:53 → T4-B 14:36 → OBSVTOIN 06-08 15:57
PROVIDERS: ADMIT Internal Medicine; ATTEND Internal Medicine
PROC: 0FT44ZZ Resection of Gallbladder, Percutaneous Endoscopic Approach (ICD-10-PCS; principal; 2020-06-10)
PROC: 0W9G40Z Drainage of Peritoneal Cavity with Drainage Device, Percutaneous Endoscopic Approach (ICD-10-PCS; 2020-06-10)
DX: K81.0 Acute cholecystitis (principal); I48.0 Paroxysmal atrial fibrillation; N40.0 Benign prostatic hyperplasia without lower urinary tract symptoms; I25.10 Atherosclerotic heart disease of native coronary artery without angina pectoris; E78.5 Hyperlipidemia, unspecified; I10 Essential (primary) hypertension; Z96.653 Presence of artificial knee joint, bilateral; Z96.643 Presence of artificial hip joint, bilateral; Z20.828 Contact with and (suspected) exposure to other viral communicable diseases; Z79.01 Long term (current) use of anticoagulants; Z88.0 Allergy status to penicillin; Z95.810 Presence of automatic (implantable) cardiac defibrillator; Z86.73 Personal history of transient ischemic attack (TIA), and cerebral infarction without residual deficits; Z98.42 Cataract extraction status, left eye; Z98.41 Cataract extraction status, right eye; Z90.49 Acquired absence of other specified parts of digestive tract; Z88.8 Allergy status to other drugs, medicaments and biological substances; Z91.041 Radiographic dye allergy status; Z88.6 Allergy status to analgesic agent
CPT/HCPCS: 36415; 74174; 76705; 80048; 83605; 83690; 85025; 87635; 88304; 93306; 96361; 96374; G0378; J0694; J1956; J2270; J2704; J3010; J7512; Q0163; Q9967; U0003